=== PATIENT | male | born 1975 | race Caucasian/White ===

== ENCOUNTER → 2019-02-13 | Outpatient (CLI) | payer BC ==
[2019-02-13 12:36] LABS: Basophils % (A) 0 %; Eosinophils # (A) 0.1 k/uL (0-0.7); Eosinophils % (A) 2 %; HGB 15.2 gm/dL (13.0-17.5); Lymphocytes # (A) 1.3 k/uL (1.0-4.8); Lymphocytes % (A) 26 %; MCH 30.5 pg (25.0-35.0); MCHC 33.8 g/dL (31.0-37.0); Mean Platelet Volume 6.5; Monocytes # (A) 0.3 k/uL (0-1.0); Monocytes % (A) 6 %; Neutrophils # (A) 3.2 k/uL (1.3-7.7); Neutrophils % (A) 62 %; Platelet Count 273 k/uL (150-450); RDW 14.9 % (11.5-15.5); WBC 5.1 k/uL (3.8-10.6)
[2019-02-13 13:28] LABS: Erythrocyte Sedimentation Rate 2 mm/hr (0-15)
[2019-02-13 19:32] LABS: Gliadin AB IgA, Unit <0.2 U/mL
== END | disposition home or self-care (01) ==
LOC: LABWHC1 11:54
PROVIDERS: ATTEND Internal Medicine Gastroenterology
DX: K52.9 Noninfective gastroenteritis and colitis, unspecified (principal)
CPT/HCPCS: 36415; 83516; 85025; 85652; 86140

== ENCOUNTER 2019-02-25 08:51 | Day surgery (SDC) | payer BC ==
[2019-02-23 16:16] VITALS: BMI 26.4
[~2019-02-25 08:51] MED LIST: LACTATED RINGERS 1,000 ML IV SCH; LIDOCAINE 1% 20 ML VIAL (10MG/ML) FOR IV START INTRADERMA PRN
[2019-02-25 09:11] VITALS: RESP 16; TEMP 97.1
[2019-02-25] MEDS ORDERED: LIDOCAINE 1% INJ 10MG/ML (20 ML MDV) ONE (10:08)
[2019-02-25] MEDS ORDERED: PROPOFOL 10 MG/ML 20 ML VIAL IV ONE (10:08)
[2019-02-25] MEDS ORDERED: IV FLUID CONTINUATION 1,000 ML IV ONE (10:27)
--- NOTE | 2019-02-25 10:29 | P.PCN ---
Date of Procedure: 02/25/19 Procedure(s) Performed: BRIEF HISTORY: Patient is a 43-year-old pleasant white male, scheduled for an elective colonoscopy as a part of the dilation of chronic diarrhea for the last 6 months duration. He has vomited from 4-10 a day which are loose to watery in consistency but no blood or mucus in the stool. He has a family history of inflammatory bowel disease in his brother. PROCEDURE PERFORMED: Colonoscopy with biopsy. PREOPERATIVE DIAGNOSIS: Chronic diarrhea. IV sedation per Anesthesia. PROCEDURE: After informed consent was obtained, the patient, was brought into the endoscopy unit. IV sedation was administered by Anesthesia under continuous monitoring. Digital rectal examination was normal. Initially the Olympus CF-160 flexible video colonoscope was then inserted in the rectum, gradually advanced into the cecum without any difficulty. Careful examination was performed as the scope was gradually being withdrawn. Ileocecal valve and the appendiceal orifice were visualized and appeared normal. Prep was excellent. Mucosa of the cecum, ascending colon, transverse colon, descending colon, sigmoid colon, and rectum appeared normal. Random biopsies were done from ascending and descending colon to rule out microscopic/collagenous colitis. Retroflexion was performed in the rectum and no lesions were seen. The patient tolerated the procedure well. IMPRESSION: Normal-appearing colon from rectum to cecum with no evidence of colitis or colorectal neoplasia. RECOMMENDATIONS: Findings of this examination were discussed with the patient as well as his family. He was advised to follow with the biopsy results. He was advised to have a repeat screening colonoscopy at age 50..
[2019-02-25 10:31] VITALS: PULSE 61
[2019-02-25 10:48] VITALS: BP 112/64
== END 2019-02-25 11:04 | disposition home or self-care (01) ==
LOC: ORWHC2ENDO 08:51
PROVIDERS: ATTEND Internal Medicine Gastroenterology
DX: K52.9 Noninfective gastroenteritis and colitis, unspecified (principal); Z83.79 Family history of other diseases of the digestive system
CPT/HCPCS: 88305; 45380; J2001; J2704; 45379